=== PATIENT | female | born 1990 | race Caucasian/White ===

== ENCOUNTER 2024-06-26 22:05 | Inpatient (IN) | payer MEDICAID, OTHER ==
[~2024-06-26] VITALS: Ht 149.9 cm; Wt 67.6 kg
[2024-06-26] MEDS ORDERED: ONDANSETRON HCL/PF 4 MG/2 ML VIAL ONE (22:49)
[2024-06-26] MEDS ORDERED: KETOROLAC TROMETHAMINE 15 MG/ML VIAL ONE (22:49)
[2024-06-26] MEDS: KETOROLAC TROMETHAMINE 15 MG/ML VIAL IV ONE (22:58)
[2024-06-26] MEDS: ONDANSETRON HCL/PF 4 MG/2 ML VIAL IVP ONE (22:59)
[2024-06-26 23:13] LABS: BASOPHILS % (AUTO) 0.2 % (0.0-2.0); HEMATOCRIT 37 % (33-45); HEMOGLOBIN 12.5 g/dL (11.5-14.8); LYMPHOCYTES # (AUTO) 1.6 K/uL (0.8-4.8); LYMPHOCYTES % (AUTO) 41.9 % (20.0-44.0); MEAN CORPUSCULAR HEMOGLOBIN 29 PG (26.0-33.0); MEAN CORPUSCULAR HGB CONC 34 g/dl (31.0-36.0); MEAN CORPUSCULAR VOLUME 86 fL (82-100); MONOCYTES # (AUTO) 0.2 K/uL (0.1-1.30); MONOCYTES % (AUTO) 5.7 % (2.0-12.0); NEUTROPHILS % (AUTO) 52.2 % (43.0-81.0); PLATELET COUNT (AUTO) 162 K/uL (150-450); RED BLOOD CELL COUNT(AUTO) 4.33 MIL/uL (4.0-5.2); RED CELL DISTRIBUTION WIDTH 13.3 % (11.5-15.0); WHITE BLOOD COUNT (AUTO) 3.8 K/uL (4.3-11.0)
[2024-06-26 23:23] LABS: CALCIUM, SERUM 8.5 mg/dL (8.5-10.1); CREATININE 0.7 mg/dL (0.6-1.3); POTASSIUM 3.7 mmol/L (3.5-5.1)
[2024-06-26 23:29] LABS: ALBUMIN 3.8 g/dL (3.4-5.0); BILIRUBIN,DIRECT 0.2 mg/dL (0.0-0.2); BILIRUBIN,TOTAL 0.6 mg/dL (0.2-1.0); TOTAL PROTEIN, SERUM 8.8 g/dL (6.4-8.2)
[2024-06-26 23:32] LABS: APPEARANCE,URINE SLIGHTLY CLOUDY (CLEAR); BILIRUBIN,URINE 1+ (NEGATIVE); BLOOD, URINE 3+ Ery/uL (NEGATIVE); COLOR,URINE YELLOW (YELLOW); KETONES,URINE TRACE mg/dL (NEGATIVE); LEUKOCYTE ESTERASE ,URINE NEGATIVE (NEGATIVE); NITRITE, URINE NEGATIVE (NEGATIVE); PROTEIN,URINE 2+ mg/dl (NEGATIVE); UGLUCOSE NEGATIVE (NEGATIVE); UROBILINOGEN,URINE 0.2 EU/dL (0.2)
[2024-06-26] MEDS ORDERED: IV NS 0.9% 250 ML IV ONE (23:42)
[2024-06-26] MEDS ORDERED: IOHEXOL-300 100 ML VIAL IV ONE (23:42)
[2024-06-26] MEDS ORDERED: CT SWABBABLE VALVE TRANS SET 1 EA INFUS.SET MC ONE (23:42)
[2024-06-26 23:56] LABS: WBC,URINE 0-2 /HPF (0-3)
[2024-06-26 23:57] LABS: ADD URINE CULTURE NO; BACTERIA,URINE Few /HPF (None Seen); FINE GRANULAR CASTS,URINE Few /LPF (None Seen); PREGNANCY TEST URINE QUAL NEGATIVE (NEGATIVE); SQUAMOUS EPITHELIAL CELL,UR Few /HPF (None Seen); YEAST,URINE None Seen /HPF (None Seen)
[2024-06-27] MEDS ORDERED: ONDANSETRON HCL/PF 4 MG/2 ML VIAL IVP PRN (02:30)
[2024-06-27] MEDS ORDERED: Z GUARD REMEDY 4 OZ OINT TP PRN (02:30)
[2024-06-27 03:00] VITALS: BP 106/55; TEMP 98.1; O2SAT 99
[2024-06-27] MEDS: IV NS 0.9% 1,000 ML IV PRN (03:40)
[2024-06-27 03:58] VITALS: BP 106/55; TEMP 98.1; O2SAT 98
[2024-06-27 07:00] VITALS: BP 114/55; TEMP 101.3; O2SAT 97
[2024-06-27 07:35] LABS: BASOPHILS % (AUTO) 0.2 % (0.0-2.0); HEMATOCRIT 32 % (33-45); HEMOGLOBIN 11.7 g/dL (11.5-14.8); LYMPHOCYTES # (AUTO) 1.3 K/uL (0.8-4.8); LYMPHOCYTES % (AUTO) 35.9 % (20.0-44.0); MEAN CORPUSCULAR HEMOGLOBIN 31 PG (26.0-33.0); MEAN CORPUSCULAR HGB CONC 36 g/dl (31.0-36.0); MEAN CORPUSCULAR VOLUME 85 fL (82-100); MONOCYTES # (AUTO) 0.3 K/uL (0.1-1.30); MONOCYTES % (AUTO) 7.5 % (2.0-12.0); NEUTROPHILS # (AUTO) 2.1 K/uL (1.8-8.9); NEUTROPHILS % (AUTO) 56.4 % (43.0-81.0); PLATELET COUNT (AUTO) 142 K/uL (150-450); RED BLOOD CELL COUNT(AUTO) 3.81 MIL/uL (4.0-5.2); RED CELL DISTRIBUTION WIDTH 13.4 % (11.5-15.0); WHITE BLOOD COUNT (AUTO) 3.6 K/uL (4.3-11.0)
[2024-06-27] MEDS: PANTOPRAZOLE 40 MG VIAL IV SCH (08:19)
[2024-06-27 08:23] LABS: ALBUMIN 2.8 g/dL (3.4-5.0); BILIRUBIN,DIRECT 0.1 mg/dL (0.0-0.2); BILIRUBIN,TOTAL 0.6 mg/dL (0.2-1.0); CALCIUM, SERUM 8.1 mg/dL (8.5-10.1); CREATININE 0.6 mg/dL (0.6-1.3); MAGNESIUM 2.3 mg/dL (1.8-2.4); PHOSPHORUS 3.7 mg/dL (2.5-4.9); POTASSIUM 3.4 mmol/L (3.5-5.1); TOTAL PROTEIN, SERUM 7.6 g/dL (6.4-8.2)
[2024-06-27 08:25] LABS: THYROID STIMULATING HORMONE 0.91 uIU/mL (0.358-3.74)
[2024-06-27] MEDS: MORPHINE SULFATE INJ 2 MG/ML DISP.SYRIN IV PRN (08:35)
[2024-06-27] MEDS: ACETAMINOPHEN 325 MG TABLET PO PRN ×2 (09:29→10:57)
[2024-06-27 10:15] VITALS: TEMP 100.1; O2SAT 98
[2024-06-27] MEDS: POTASSIUM CL. PREMIX PERIPHER. 50 ML IV SCH (10:59)
[2024-06-27] MEDS ORDERED: IOHEXOL-350 100 ML VIAL IV ONE (13:11)
[2024-06-27] MEDS ORDERED: IV NS 0.9% 250 ML IV ONE (13:12)
[2024-06-27] MEDS ORDERED: ACETAMINOPHEN 325 MG TABLET PO PRN (15:00)
[2024-06-27 16:00] VITALS: BP 111/56; TEMP 98.9; O2SAT 100
[2024-06-27 16:37] LABS: URINE SODIUM, RANDOM 50 mmol/l (40-220)
[2024-06-27 16:43] LABS: AMPHETAMINE, URINE NEGATIVE (NEGATIVE); BARBITURATE, URINE NEGATIVE (NEGATIVE); BENZODIAZEPINE, URINE NEGATIVE (NEGATIVE); CANNABINOID, URINE NEGATIVE (NEGATIVE); COCCAINE, URINE NEGATIVE (NEGATIVE); PHENCYCLIDINE SCREEN,URINE NEGATIVE (NEGATIVE)
[2024-06-27 16:45] LABS: OPIATE, URINE POSITIVE (NEGATIVE)
[2024-06-27] MEDS: DICYCLOMINE HCL 10 MG CAPSULE PO SCH (17:09)
[2024-06-27 20:00] VITALS: BP 133/78; TEMP 102.2; TEMP 102.7; TEMP 216.9; O2SAT 98
[2024-06-27] MEDS ORDERED: VANCOMYCIN 1 GM /D5W 250 ML PB IV ONE (23:05)
[2024-06-27] MEDS ORDERED: CEFTRIAXONE 1GM BAG (ER ONLY) 100 ML IV ONE (23:06)
[2024-06-27] MEDS: CEFTRIAXONE 2 G in IV D5W 100 ML IV SCH (23:08)
[2024-06-27] MEDS: VANCOMYCIN 1 GM in IV NS 0.9% 250 ML IV ONE (23:43)
[2024-06-28 07:07] LABS: HEPATITIS B CORE AB, TOTAL Negative (Negative)
[2024-06-28 07:58] LABS: BASOPHILS % (AUTO) 0.2 % (0.0-2.0); HEMATOCRIT 34 % (33-45); HEMOGLOBIN 11.3 g/dL (11.5-14.8); LYMPHOCYTES # (AUTO) 1.8 K/uL (0.8-4.8); LYMPHOCYTES % (AUTO) 55.6 % (20.0-44.0); MEAN CORPUSCULAR HEMOGLOBIN 28 PG (26.0-33.0); MEAN CORPUSCULAR HGB CONC 33 g/dl (31.0-36.0); MEAN CORPUSCULAR VOLUME 86 fL (82-100); MONOCYTES # (AUTO) 0.3 K/uL (0.1-1.30); MONOCYTES % (AUTO) 8.5 % (2.0-12.0); NEUTROPHILS # (AUTO) 1.2 K/uL (1.8-8.9); NEUTROPHILS % (AUTO) 35.7 % (43.0-81.0); PLATELET COUNT (AUTO) 154 K/uL (150-450); RED BLOOD CELL COUNT(AUTO) 3.99 MIL/uL (4.0-5.2); RED CELL DISTRIBUTION WIDTH 13.6 % (11.5-15.0); WHITE BLOOD COUNT (AUTO) 3.3 K/uL (4.3-11.0)
[2024-06-28 07:59] LABS: CALCIUM, SERUM 8.9 mg/dL (8.5-10.1); CREATININE 0.5 mg/dL (0.6-1.3); POTASSIUM 3.8 mmol/L (3.5-5.1)
[2024-06-28 08:00] VITALS: BP 88/55; TEMP 98.1; O2SAT 99
[2024-06-28 08:12] LABS: THYROID STIMULATING HORMONE 0.42 uIU/mL (0.358-3.74); URIC ACID 3.1 mg/dL (2.6-7.2)
[2024-06-28 08:20] LABS: MAGNESIUM 2.7 mg/dL (1.8-2.4); PHOSPHORUS 4.6 mg/dL (2.5-4.9)
[2024-06-28] MEDS: VANCOMYCIN 1 GM in IV D5W 250 ML IV SCH (09:07)
[2024-06-28 15:23] LABS: OSMOLALITY,URINE 536 mOS/kg (340-1090)
[2024-06-28 16:00] VITALS: BP 110/58; TEMP 102.7; O2SAT 97
[2024-06-28 16:04] LABS: HIV-1 p24 ANTIGEN NON REACTIVE (NONREACTIVE); HIV-1/2 ANTIBODY NON REACTIVE (NONREACTIVE)
[2024-06-28 20:00] VITALS: BP 108/65; TEMP 97.9; O2SAT 98
== END 2024-06-28 21:45 | disposition short-term general hospital (02) | DRG 663 ==
LOC: ER 22:09 → MED 06-27 02:15
DX: D73.5 Infarction of spleen (principal); E87.1 Hypo-osmolality and hyponatremia; D72.819 Decreased white blood cell count, unspecified; E87.6 Hypokalemia
CPT/HCPCS: 36415; 71045-TC; 74175-TC; 80048-TC; 80076-TC; 81001; 82150-TC; 83690-TC; 83735-TC; 83935-TC; 84100-TC; 84300-TC; 84443-TC; 84550-TC; 84703-TC; 85025-TC; 86480; 86704; 86803; 87040-TC; 87340; 87806; 93307-TC; A4223; G0378; J0696; J1885; J2270; J2405; J2470; J3370; J3480; J7030; J7050; J7060; Q9967